=== PATIENT | male | born 1960 | race Caucasian/White ===

== ENCOUNTER 2019-05-25 11:16 | Emergency (ER) | payer OTHER, SELFPAY ==
--- NOTE | ~2019-05-25 | CT_ITS ---
EXAMINATION: CT brain wo con DATE: 05/25/2019 12:08 INDICATION: Syncope. Head trauma. TECHNIQUE: Computed tomography (CT) of the head was performed without intravenous contrast. Sagittal and coronal reconstructions were performed. The dose-length product was 681.00 mGy-cm. COMPARISON: None FINDINGS: Small left occipital scalp hematoma. No fracture. No acute intracranial hemorrhage, acute infarction or abnormal extra axial fluid collection. There is mild scattered white matter hypoattenuation consis tent with chronic small vessel ischemic disease. Ventricles are normal and symmetric. No mass/mass e ffect. Mild mucosal thickening the bilateral ethmoid and right maxillary sinuses. The orbits and mast oid air cells are normal. IMPRESSION: 1. No fracture or acute intracranial process. 2. Mild scattered white matter hypoattenuation consistent with chronic small vessel ischemic disease. Reviewed, dictated and finalized at location A. PING RECEIVING CLERK IMPRESSION: 1. No fracture or acute intracranial process. 2. Mild scattered white matter hypoattenuation consistent with chronic small ve ssel ischemic disease.
[2019-05-25 11:17] VITALS: BP 137/76; PULSE 105; RESP 17; TEMP 36.8; O2SAT 97
--- NOTE | 2019-05-25 11:27 | ECG_ITS ---
Measurements Intervals [place] Rate: 84 P: 23 HI: 115 QRS: -28 QRSD: 108 T: -17 QT: 361 QTc: 428 Interpretive Statements SINUS RHYTHM WITH SHORT HI INTERVAL INFERIOR INFARCT, AGE INDETERMINATE ABNORMAL ECG Electronically Signed On 05-25-2019 11:46:57 SALES OFFICE ASSISTANT by Hola Villegas D.O.
[2019-05-25 11:28] VITALS: BP 138/81; PULSE 78
[2019-05-25 11:35] VITALS: BP 131/83; PULSE 86
--- NOTE | 2019-05-25 11:35 | ED.DIZZY ---
HPI - Dizziness General Chief Complaint: Dizziness Stated Complaint: Syncopal Time Seen by Provider: 05/25/19 11:29 Source: patient Mode of arrival: ambulatory Limitations: no limitations History of Present Illness HPI Narrative: Pt is a 58 y/o male who presents to the ED, via EMS, with c/o lightheadedness since Friday (3 days ago). Pt states he started a new anxiety medicine on and he believes he is having side affects from the medication. He notes that he started Buspirone and Atarax. He states that he has been nauseas and has no appetite since starting the medication. Pt notes that he has been constantly dizzy since starting the medication but he states that the room is not spinning. He states that he had a syncopal episode while he was sitting in the [place] [employer] holding cell. He states that he was sitting in a confined space and everything went dark and he passed out. Later he was sitting on a stool and felt lightheaded but did not pass out. He states that he was at the [facility] because there was a warrant out for his arrest. He states that he only had 2 cups of coffee today and nothing to eat. He denies vomiting, CP, ABD pain, leg pain, or leg swelling. MD elicited complaint: lightheadedness Pertinent past history: syncope Onset (ago): day(s) (3) Timing: episodic Description: lightheadedness Context: change in medication Associated symptoms: nausea, syncope and other (no appetite) Related Data Home Medications Medication Instructions Recorded Confirmed Seven Meds From [employer] 05/25/19 buspirone 10 mg PO TID 05/25/19 hydroxyzine HCl 05/25/19 Allergies Allergy/AdvReac Type Severity Reaction Status Date / Time Opioids - Morphine Analogues AdvReac Anxiety Verified 05/25/19 11:23 Review of Systems Review of Systems: Narrative: CONSTITUTIONAL: Reports decreased appetite. CARDIOVASCULAR: Denies chest pain. GASTROINTESTINAL: Reports nausea. Denies vomiting. MUSCULOSKELETAL: Denies leg pain or leg swelling NEUROLOGIC: Reports lightheadedness, dizziness, and syncope. All systems reviewed & are unremarkable except as noted in HPI and below PMFSH Past Medical History Medical History (Updated 05/25/19 @ 14:30 by Priya Leon MD) Anxiety Ulcer Surgical History Surgical History (Updated 03/03/20 @ 12:56 by Maddy Kennedy) No significant past surgical history Social History Social History Gender identity (if verbalized by the patient): Male Exam Narrative: Exam Narrative: GENERAL: Well-appearing, well-nourished, and in no acute distress. HEAD: Normocephalic, atraumatic. EYES: PERRLA and EOMI. ENT: Nares clear, no rhinorrhea or epistaxis. Mucous membranes moist. NECK: Supple. CHEST: Clear to auscultation. No respiratory distress. HEART: Regular rate and rhythm. No murmur heard. Normal peripheral pulses. ABDOMEN: Soft, nontender, nondistended, normal active bowel sounds. EXTREMITIES: Normal range of motion. No edema. Ulceration scar to rt mid ankle SKIN: Warm, dry, no rash. NEURO: No focal deficits. Alert and oriented X3. Finger to nose intact bilaterally. EOMs intact without nystagmus. No facial droop/asymmetry noted bilaterally. Grimace intact. Intact sensation in face. Hearing intact bilaterally. Shoulder shrug intact. Strength 5/5 bilateral upper extremities. Strength 5/5 bilateral lower extremities. Reflexes 2+ patellar. Heel to bear intact bilaterally. Ambulatory exam deferred. Course Course Emergency Course: Patient presented to the emergency department from retirement as he was incarcerated as there was a warrant out for his arrest. Patient states that he passed out once at retirement, and the nearly passed out a second time. The time of initial assessment, ABCs are intact, vital signs are stable. Patient is neurologically intact without any focal neurological deficits. His blood pressure is stable. No severe tachycardia. Patient is actually very well-appearing. It is unsure the mechanism
[2019-05-25 11:36] VITALS: BP 143/82; PULSE 94
[2019-05-25 12:07] LABS: Basophils Percent Auto 0.2 % (0.2-1.2); Eosinophils Absolute Auto 0.1 K/mm3 (0-0.3); Eosinophils Percent Auto 2.8 % (0-4.4); Hematocrit 39.9 % (42.0-52.0); Immature Granulocyte Absolute 0.02 K/mm3 (0.00-0.031); Immature Granulocyte Percent A 0.5 % (0-0.5); Lymphocytes Absolute Auto 1.11 K/mm3 (0.9-3.2); Lymphocytes Percent Auto 26.1 % (18.3-44.2); Mean Corpuscular HGB Conc 32.6 g/dl (32-36); Mean Corpuscular Hemoglobin 30.4 pg (26-34); Mean Corpuscular Volume 93.4 fl (80-100); Mean Platelet Volume 11.9 fl (7.4-10.4); Monocytes Absolute Auto 0.4 K/mm3 (0.1-0.6); Monocytes Percent Auto 9.9 % (2.6-8.5); Neutrophils Absolute Auto 2.6 K/mm3 (1.3-6.7); Neutrophils Percent Auto 60.5 % (45.5-73.1); Platelet Count Result 121 k/mm3 (150-375); Red Blood Count 4.27 M/mm3 (4.6-6.20); White Blood Count 4.3 K/mm3 (4.5-10.0)
[2019-05-25] MEDS: SODIUM CHLORIDE 0.9% IV 1,000 ML 999 ML IV CONT (12:10)
[2019-05-25] MEDS: MECLIZINE HCL 25 MG TABLET PO (12:13)
[2019-05-25 12:15] LABS: Blood Urea Nitrogen 16 mg/dL (9-20); Calcium 9.3 mg/dL (8.4-10.2); Carbon Dioxide 24 mmol/L (22-30); Chloride 108 mmol/L (98-107); Estimated CRCL calculation 71 ml/min; Estimated Glomerular Filt Rate > 60; Glucose 116 mg/dL (75-110); Potassium 3.8 mmol/L (3.4-5.0); Sodium 139 mmol/L (137-145)
[2019-05-25 12:47] LABS: INR 0.9; Prothrombin Time 11.8 Seconds (11.1-14.7)
[2019-05-25 12:48] LABS: Partial Thromboplastin Time 25.5 SECONDS (22.3-36.8)
[2019-05-25 12:57] LABS: Troponin I < 0.012 ng/mL (0.000-0.034)
[2019-05-25 13:21] VITALS: BP 146/81; PULSE 81; RESP 14; TEMP 36.7; O2SAT 98
[2019-05-25 14:19] LABS: Add Urine Microscopic? YES; Appearance Urine Clear (Clear); Bilirubin Urine Negative (Negative); Blood Urine 1+ (Negative); Color Urine Straw (Yellow); Glucose Urine UA Negative (Negative); Ketones Urine Negative (Negative); Leukocyte Esterase Ur Negative LEU/UL (Negative); Mucus Urine Rare /lpf; Nitrate Urine Negative (Negative); Protein Urine 1+ mg/dL (Negative); RBC Urine 0-2 /hpf (0-2); Specific Grav Ur 1.014 (1.001-1.035); Squamous Epithelial Cell Urine Rare /hpf (Few); Urobilinogen Urine Negative mg/dL (<2.0); WBC Urine 0-3 /hpf
[2019-05-25 15:29] VITALS: BP 140/91; PULSE 85; RESP 20; O2SAT 96
== END 2019-05-25 15:31 | disposition home or self-care (01) ==
PROVIDERS: Emergency Provider Emergency Medicine
DX: E86.0 Dehydration (principal); R42 Dizziness and giddiness; F41.9 Anxiety disorder, unspecified; R94.31 Abnormal electrocardiogram [ECG] [EKG]
CPT/HCPCS: 36415; 70450; 80048; 81001; 84484; 85025; 85055; 85610; 85730; 93005; 96360; 99284; A9270; J7030